=== PATIENT | female | born 1940 | race Caucasian/White ===

== ENCOUNTER 2020-09-11 13:21 | Inpatient (IN) | payer MEDICARE, BC ==
[~2020-09-11] VITALS: Ht 152.4 cm; Wt 103.4 kg
--- NOTE | 2020-09-11 16:30 | NUR ---
Admitted this 80 year old female from [facility] at 1610 with diagnosis of Right Knee Total Arthroplasty. Per report from Cory nurse at [facility], sx was 09/[address] Baker. No acute distress, no SOB noted, pt denies pain/discomfort at this time. Pt oriented to unit, floor, and assigned room. Pt A&Ox4, able to make needs known. MRSA swab to be collected and sent to lab. VS as follows: BP 144/80, Temperature 98.7 oral, Respirations 17, SpO2 94% on RA. HR of 104, per report from nurse at [facility] and paramedics, this is "normal" for pt. Pt educated geographic information systems engineer light usage, verbalized understanding. Call light and belongings within reach. Safety measures and fall precautions in place. Will continue to monitor.
[2020-09-11] MEDS ORDERED: LISI20TA30 PO (17:10)
[2020-09-11] MEDS ORDERED: ASPI-612 PO (17:10)
[2020-09-11] MEDS ORDERED: LEVO50TA8 PO (17:10)
[2020-09-11] MEDS ORDERED: CHOL10002 PO (17:10)
[2020-09-11] MEDS ORDERED: ALEN70TA80 PO (17:10)
[2020-09-11] MEDS ORDERED: VERA240C2 PO (17:10)
[2020-09-11] MEDS ORDERED: VERAPAMIL SR 120 MG TABLET.SA PO SCH (19:00)
[2020-09-11] MEDS ORDERED: LISINOPRIL 20 MG TABLET PO SCH (19:00)
[2020-09-11 19:02] VITALS: BP 144/50
[2020-09-11 20:22] VITALS: BP 102/46
--- NOTE | 2020-09-11 21:44 | NUR ---
Received pt resting in bed. AAO x4. On 2L O2 via NC, no acute distress noted. Denies pain/ discomfort. Due meds given as ordered. Admission assessment done. Safety measures maintained. Call light and personal items within reach. Will continue to monitor.
[2020-09-12 04:28] VITALS: BP 157/76
[2020-09-12] MEDS: OXYCODONE/APAP 5-325 MG TABLET PO PRN (05:38)
[2020-09-12 08:00] VITALS: BP 155/59
[2020-09-12] MEDS ORDERED: LEVOTHYROXINE SODIUM 50 MCG TABLET PO SCH (09:00)
[2020-09-12] MEDS: LISINOPRIL 20 MG TABLET PO SCH ×2 (09:21→20:16)
[2020-09-12] MEDS: CHOLECALCIFEROL 1,000 UNIT TABLET PO SCH (09:21)
[2020-09-12] MEDS: DOCUSATE SODIUM 100 MG CAPSULE PO SCH ×2 (09:21→20:15)
[2020-09-12] MEDS: ASPIRIN 325 MG TABLET PO SCH (09:21)
--- NOTE | 2020-09-12 10:46 | NUR ---
LEFT A MESSAGE FOR MD FOR VTE PROPHYLACTIC ORDER. WILL FOLLOW UP FOR MD ORDER.
[2020-09-12] MEDS ORDERED: IBANDRONATE 150 MG PO SCH (12:00)
[2020-09-12] MEDS: SENNOSIDES/DOCUSATE SODIUM TABLET PO SCH (12:04)
[2020-09-12] MEDS: ENOXAPARIN SODIUM 40 MG/0.4 ML DISP.SYRIN SQ SCH (12:05)
[2020-09-12] MEDS ORDERED: IBAN150T16 PO (12:32)
[2020-09-12] MEDS ORDERED: VERA300C6 PO (12:32)
[2020-09-12 16:20] VITALS: BP 124/55
[2020-09-12] MEDS ORDERED: VERAPAMIL SR 120 MG TABLET.SA PO SCH (18:00)
--- NOTE | 2020-09-12 18:15 | NUR ---
PATIENT PLEASANT AND COOPERATIVE. TOLERATED PHYSICAL THERAPY. VSS. MEDICATIONS GIVEN PRESCRIBED. NO S/S OF DISTRESS OR SOB NOTED. SAFETY PRECAUTIONS IN PLACE. CALL LIGHT WITHIN REACH. ALL NEEDS MET. WILL CONTINUE TO MONITOR.
--- NOTE | 2020-09-12 19:15 | NUR ---
Received pt in bed, awake, A&Ox4, able to make needs known, pleasant. Pt on oxygen at 2LPM via NC, showing no s/s of respiratory distress. No pain or discomfort reported. Safety measures in place, call light within reach. will continue to monitor.
[2020-09-12 20:00] VITALS: BP 153/63
[2020-09-13 04:00] VITALS: BP 163/70
[2020-09-13] MEDS ORDERED: ALENDRONATE SODIUM 70 MG TABLET PO SCH (06:00)
[2020-09-13] MEDS: LEVOTHYROXINE SODIUM 50 MCG TABLET PO SCH (06:18)
--- NOTE | 2020-09-13 06:20 | NUR ---
Pt in bed, awake and responsive, no s/s of respiratory distress, no pain reported. Medications given and tolerated well. Safety measures in place, call light within reach, all needs attended.
[2020-09-13 07:45] VITALS: BP 166/77
[2020-09-13 07:56] VITALS: BP 166/77
[2020-09-13] MEDS ORDERED: VERAPAMIL 300 MG PO SCH (10:08)
[2020-09-13] MEDS: ASPIRIN 325 MG TABLET PO SCH (10:17)
[2020-09-13] MEDS: DOCUSATE SODIUM 100 MG CAPSULE PO SCH ×2 (10:18→20:53)
[2020-09-13] MEDS: CHOLECALCIFEROL 1,000 UNIT TABLET PO SCH (10:18)
[2020-09-13] MEDS: LISINOPRIL 20 MG TABLET PO SCH ×2 (10:19→20:53)
[2020-09-13] MEDS: ENOXAPARIN SODIUM 40 MG/0.4 ML DISP.SYRIN SQ SCH (10:22)
[2020-09-13] MEDS: SENNOSIDES/DOCUSATE SODIUM TABLET PO SCH (10:23)
[2020-09-13] MEDS ORDERED: SORBITOL 70% SOLUTION 30 ML UDC PO ONE (11:00)
[2020-09-13] MEDS ORDERED: LACTULOSE 20 G/30 ML LIQUID UDC PO ONE (11:00)
[2020-09-13 12:00] VITALS: BP 152/65
[2020-09-13 16:00] VITALS: BP 141/62
--- NOTE | 2020-09-13 19:20 | NUR ---
Received pt laying in bed, awake, A&Ox4, able to make needs known. Pt on room air saturating at 93%, non labored breathing, no s/s of acute distress. No pain or discomfort noted. Safety measures in place, call light within reach, will continue to monitor.
[2020-09-13 20:00] VITALS: BP 135/71
--- NOTE | 2020-09-13 20:54 | NUR ---
Pt refused Colace saying " I had a good bowel movement today. I'm gonna wait till morning".
[2020-09-13] MEDS: OXYCODONE/APAP 5-325 MG TABLET PO PRN (21:51)
[2020-09-14 04:38] VITALS: BP 144/57
[2020-09-14] MEDS: LEVOTHYROXINE SODIUM 50 MCG TABLET PO SCH (06:04)
--- NOTE | 2020-09-14 06:18 | NUR ---
Pt slept through the night. On room air saturating at 94%, no s/s of respiratory distress. Medications tolerated well. R knee incision site clean and dry, no s/s of infection. Safety measures maintained, call light within reach, all needs attended.
[2020-09-14] MEDS: SENNOSIDES/DOCUSATE SODIUM TABLET PO SCH (09:00)
[2020-09-14] MEDS: ASPIRIN 325 MG TABLET PO SCH (09:18)
[2020-09-14] MEDS: LISINOPRIL 20 MG TABLET PO SCH ×2 (09:18→20:07)
[2020-09-14] MEDS: CHOLECALCIFEROL 1,000 UNIT TABLET PO SCH (09:18)
[2020-09-14] MEDS: DOCUSATE SODIUM 100 MG CAPSULE PO SCH ×2 (09:19→20:07)
[2020-09-14] MEDS: ENOXAPARIN SODIUM 40 MG/0.4 ML DISP.SYRIN SQ SCH (09:20)
[2020-09-14] MEDS: VERAPAMIL SR 120 MG TABLET.SA PO SCH (10:19)
--- NOTE | 2020-09-14 14:39 | NUR ---
INDIVIDUALIZED PLAN OF CARE
[2020-09-14 15:29] VITALS: BP 142/56
[2020-09-14] MEDS: CLOTRIMAZOLE 1% CREAM 30 GM TUBE TOP SCH (17:50)
--- NOTE | 2020-09-14 18:54 | NUR ---
Patient in bed, alert and oriented x 4, pleasant and cooperative upon assessment. Lotirimin order carried out for redness under the left breast. Right knee pratibha intact with no s/s of infection well approximated. All due meds given as ordered and tolerated well. VS WNL. All needs met promptly.
[2020-09-14 20:01] VITALS: BP 150/71
[2020-09-14] MEDS: OXYCODONE/APAP 5-325 MG TABLET PO PRN (20:08)
--- NOTE | 2020-09-14 21:47 | NUR ---
Received pt sleeping comfortably in bed. Aroused easily to verbal stimuli. Alert and oriented x4. No acute distress noted. C/o of right knee pain 01/25, PRN Percocet given. Other due meds also given. Turned and repositioned. Both heels offloaded. Safety measures maintained. Call light and personal items within reach. Will continue to monitor.
[2020-09-15 06:01] VITALS: BP 145/62
[2020-09-15] MEDS: LEVOTHYROXINE SODIUM 50 MCG TABLET PO SCH (06:06)
[2020-09-15 07:30] VITALS: BP 149/61
[2020-09-15] MEDS: ASPIRIN 325 MG TABLET PO SCH (08:19)
[2020-09-15] MEDS: DOCUSATE SODIUM 100 MG CAPSULE PO SCH ×2 (08:19→20:35)
[2020-09-15] MEDS: CHOLECALCIFEROL 1,000 UNIT TABLET PO SCH (08:19)
[2020-09-15] MEDS: LISINOPRIL 20 MG TABLET PO SCH ×2 (08:20→20:35)
[2020-09-15] MEDS: SENNOSIDES/DOCUSATE SODIUM TABLET PO SCH (08:20)
[2020-09-15] MEDS: VERAPAMIL SR 120 MG TABLET.SA PO SCH (08:21)
[2020-09-15] MEDS: ENOXAPARIN SODIUM 40 MG/0.4 ML DISP.SYRIN SQ SCH (08:28)
[2020-09-15] MEDS: OXYCODONE/APAP 5-325 MG TABLET PO PRN ×2 (08:29→18:11)
[2020-09-15] MEDS: CLOTRIMAZOLE 1% CREAM 30 GM TUBE TOP SCH ×2 (08:31→16:42)
[2020-09-15] MEDS ORDERED: SENNOSIDES 1 TABLET PO SCH (09:00)
[2020-09-15 15:32] VITALS: BP 134/62
--- NOTE | 2020-09-15 19:30 | NUR ---
Patient is alert and oriented x 4 on RA saturating @ 95 % . Pleasant and cooeprative upon assessment. Patient on CPM @ 1530 , tolerated well. Dressing on the right knee intact. All needs met promptly. Call light placed within easy reach. All due meds given as ordered.
[2020-09-15 20:19] VITALS: BP 141/42
[2020-09-16 06:02] VITALS: BP 146/58
--- NOTE | 2020-09-16 06:22 | NUR ---
Patient is alert and oriented x 4. SPO2 95% on Room Air. Cooperative upon assessment. Dressing on the right knee intact and dry. All needs met promptly. Call light and and personal belongings within reach. VS WNL.
[2020-09-16 07:30] VITALS: BP 132/75
[2020-09-16] MEDS: CHOLECALCIFEROL 1,000 UNIT TABLET PO SCH (08:00)
[2020-09-16] MEDS: LEVOTHYROXINE SODIUM 50 MCG TABLET PO SCH (08:00)
[2020-09-16] MEDS: ASPIRIN 325 MG TABLET PO SCH (08:00)
[2020-09-16] MEDS: SENNOSIDES/DOCUSATE SODIUM TABLET PO SCH (08:01)
[2020-09-16] MEDS: DOCUSATE SODIUM 100 MG CAPSULE PO SCH ×2 (08:01→21:24)
[2020-09-16] MEDS: OXYCODONE/APAP 5-325 MG TABLET PO PRN ×2 (08:02→17:25)
[2020-09-16] MEDS: ENOXAPARIN SODIUM 40 MG/0.4 ML DISP.SYRIN SQ SCH (08:04)
[2020-09-16] MEDS: LISINOPRIL 20 MG TABLET PO SCH ×2 (08:04→21:23)
[2020-09-16] MEDS: VERAPAMIL SR 120 MG TABLET.SA PO SCH (08:05)
[2020-09-16] MEDS: CLOTRIMAZOLE 1% CREAM 30 GM TUBE TOP SCH ×2 (08:13→17:32)
--- NOTE | 2020-09-16 09:30 | NUR ---
Received pt in bed, A&Ox4, able to verbalize needs. No acute distress, no SOB. Pt adherent with ordered medications, no a/r noted. Pt c/o R knee pain, PRN Percocet administered per order, effective. R knee dressing, clean, dry, intact. Safety measures, fall precautions in place. Call light and belongings within reach. Will continue to monitor.
--- NOTE | 2020-09-16 11:28 | NUR ---
WOUND CARE CONSULT: PT OFF UNIT AT THIS TIME. REVIEWED CHART, NURSING DOCUMENTATION AND PHOTO WHICH INDICATES CLOSED KNEE INCISION, PRESENT ON ADMISSION. PER NURSING STAFF, THERE IS BREASTFOLD REDNESS. CLOTRIMAZOLE IN USE. CONCUR WITH CURRENT TREATMENT PLAN. WILL SEE PRN. IN AGREEMENT WITH PLAN OF CARE.
--- NOTE | 2020-09-16 13:00 | NUR ---
pt placed on CPM, attempt 2 hrs at a time 2x a day as tolerated per orders. Currently pt 0 deg knee ext to 50 deg knee flexion with good michael, nursing informed.
[2020-09-16 16:00] VITALS: BP 129/50
--- NOTE | 2020-09-16 18:46 | NUR ---
EOSS: Pt in bed, awake, no acute distress. VSS. Able to verbalize needs throughout shift. Physical therapy placed pt on CPM, pt tolerated well. R knee dressing changed, surgical pratibha well approximated, no bleeding noted. Dressing and site remain clean, dry, intact. PRN Percocet administered per order for pain of 8/10, effective after 1 hour, pain subsided to 0/10. Safety measures, fall precautions remain in place. Call light and belongings within reach. Will endorse care to shift commander.
--- NOTE | 2020-09-16 19:45 | NUR ---
PATIENT ALERT ORIENTED, NO COMPLAIN OF PAIN, R KNEE DRESSING INTACT, AND DRY, ASSISTED WITH TURNING AND REPOSITIONING. PATIENT CALL LIGHT WITHIN REACH.
[2020-09-16 20:15] VITALS: BP 121/51
[2020-09-17 04:00] VITALS: BP 144/50
--- NOTE | 2020-09-17 06:02 | NUR ---
PATIENT ALERT ORIENTED, NO SOB NO CHEST PAIN. PATIENT HAS NO COMPLAIN OF PAIN AT THIS TIME. PATIENT R LEG ELEVETED WITH PILLOW, HEELS WERE ELEVATED TOO. PATIENT RENDERED GOOD JAE CARE DUE BLADDER INCONTINENCE. PATIENT SLEPT GOOD, CALL LIGHT WITHIN REACH.
[2020-09-17] MEDS: LEVOTHYROXINE SODIUM 50 MCG TABLET PO SCH (06:20)
[2020-09-17 08:18] VITALS: BP 154/58
[2020-09-17] MEDS: ASPIRIN 325 MG TABLET PO SCH (08:20)
[2020-09-17] MEDS: CHOLECALCIFEROL 1,000 UNIT TABLET PO SCH (08:21)
[2020-09-17] MEDS: SENNOSIDES/DOCUSATE SODIUM TABLET PO SCH (08:21)
[2020-09-17] MEDS: DOCUSATE SODIUM 100 MG CAPSULE PO SCH ×2 (08:21→20:50)
[2020-09-17] MEDS: OXYCODONE/APAP 5-325 MG TABLET PO PRN (08:23)
[2020-09-17] MEDS: ENOXAPARIN SODIUM 40 MG/0.4 ML DISP.SYRIN SQ SCH (08:29)
[2020-09-17] MEDS: Z GUARD REMEDY PASTE 57 GM TUBE TOP PRN ×2 (08:29→17:42)
[2020-09-17] MEDS: LISINOPRIL 20 MG TABLET PO SCH ×2 (08:30→20:50)
[2020-09-17] MEDS: CLOTRIMAZOLE 1% CREAM 30 GM TUBE TOP SCH ×2 (08:33→17:49)
[2020-09-17] MEDS: VERAPAMIL SR 120 MG TABLET.SA PO SCH (08:34)
--- NOTE | 2020-09-17 09:00 | NUR ---
Received pt in bed, awake, able to verbalize needs. No acute distress, no SOB. Pt on RA, O2 saturation 96%. VSS. Pt adherent with ordered medications, no a/r noted. PRN Percocet administered per order for pt c/o R knee pain, effective. R knee dressing, clean, dry, intact. Wound care rendered per order for L under breast redness. Safety measures, fall precautions in place. Call light and belongings within reach. Will continue to monitor.
--- NOTE | 2020-09-17 11:01 | NUR ---
WOUND CARE CONSULT: PT SEEN FOR LEFT BREASTFOLD RASH/REDNESS, PRESENT ON ADMISSION. PER PT REPORT, RASH IS IMPROVING WITH CLOTRIMAZOLE. RECOMMENDATIONS MADE FOR SKIN PROTECTION. DISCUSSED WITH NURSING STAFF. MD IN AGREEMENT WITH PLAN OF CARE.
[2020-09-17 15:59] VITALS: BP 120/41
--- NOTE | 2020-09-17 19:04 | NUR ---
EOSS: Pt in bed, awake, no acute distress, no SOB. Pt on RA, O2 saturation 94%. VSS. All needs met promptly throughout shift. Pt c/o R knee swelling, offered ice pack, pt agreed. R leg elevated, pt stated feeling more comfortable. Pt denies pain at this time. R knee dressing changed, minimal redness noted on skin where tape was applied, area cleaned, dried. Surgical pratibha well approximated, no redness or bleeding noted. Lotrimin and Z-Guard applied per order under left breast. Safety measures, fall precautions remain in place. Call light and belongings within reach. Will endorse care to security shift manager.
[2020-09-17 20:43] VITALS: BP 138/47
--- NOTE | 2020-09-18 02:17 | NUR ---
AAOx4 Patient S/P right total knee replacement on 09/09. Right knee dressing clean dry and intact. Patient continent of bowel and bladder. Voiding well in the bedpan. BM noted this shift. No complaints presented during shift. All due meds given. No acute distress noted.
[2020-09-18 04:35] VITALS: BP 142/48
[2020-09-18] MEDS: LEVOTHYROXINE SODIUM 50 MCG TABLET PO SCH (06:21)
--- NOTE | 2020-09-18 06:57 | NUR ---
End of shift notes: Slept well. Had an uneventful night. Needs attended. Voiding freely. No complaints presented during shift. VSS.
--- NOTE | 2020-09-18 07:30 | NUR ---
RECEIVED CHANGE OF SHIFT REPORT ON PT. PT IN BED RESTING, AWAKE ALERT AND ORIENTED X4. LEFT KNEE DRESSING CLEAN, DRY, IN TACT, PT HAS REDNESS UNDER THE LEFT BREAST, PT ON ROOM AIR. PT URINATES VIA DIAPER, NO IV ACCESS. BED IN LOW AND LOCKED POSITION, CALL LIGHT WITHIN REACH, SAFETY AND FALL PRECAUTIONS IN PLACE, BED ALARM ON. WILL CONTINUE TO MONITOR.
[2020-09-18 09:00] VITALS: BP 150/42
[2020-09-18] MEDS: ASPIRIN 325 MG TABLET PO SCH (09:08)
[2020-09-18] MEDS: DOCUSATE SODIUM 100 MG CAPSULE PO SCH ×2 (09:09→20:32)
[2020-09-18] MEDS: SENNOSIDES/DOCUSATE SODIUM TABLET PO SCH (09:09)
[2020-09-18] MEDS: CHOLECALCIFEROL 1,000 UNIT TABLET PO SCH (09:09)
[2020-09-18] MEDS: LISINOPRIL 20 MG TABLET PO SCH ×2 (09:09→20:33)
[2020-09-18] MEDS: ENOXAPARIN SODIUM 40 MG/0.4 ML DISP.SYRIN SQ SCH (09:10)
[2020-09-18] MEDS: VERAPAMIL SR 120 MG TABLET.SA PO SCH (09:17)
[2020-09-18] MEDS: CLOTRIMAZOLE 1% CREAM 30 GM TUBE TOP SCH ×2 (09:17→17:05)
[2020-09-18] MEDS: OXYCODONE/APAP 5-325 MG TABLET PO PRN ×2 (09:23→14:25)
[2020-09-18 09:41] LABS: BASOPHILS # (AUTO) 0.1 K/uL (0.0-8.0); BASOPHILS % (AUTO) 0.8 % (0.0-2.0); EOSINOPHILS # (AUTO) 0.3 K/uL (0.0-0.7); HEMOGLOBIN 10.3 g/dL (10.9-14.3); LYMPHOCYTES # (AUTO) 1.8 K/uL (20.0-40.0); LYMPHOCYTES % (AUTO) 18.9 % (20.5-51.5); MEAN CORPUSCULAR HEMOGLOBIN 35.3 uug (24.7-32.8); MEAN CORPUSCULAR HGB CONC 34 g/dL (32.3-35.6); MONOCYTES # (AUTO) 0.7 K/uL (2.0-10.0); MONOCYTES % (AUTO) 7.9 % (0.0-11.0); NEUTROPHILS # (AUTO) 6.5 K/uL (1.8-8.9); NEUTROPHILS % (AUTO) 69.4 % (38.5-71.5); PLATELET COUNT (AUTO) 419 K/uL (179-408); RED BLOOD CELL COUNT(AUTO) 2.91 MIL/uL (3.63-4.92); WHITE BLOOD COUNT (AUTO) 9.4 K/uL (3.8-11.8)
[2020-09-18 09:49] LABS: CREATININE 1.3 mg/dL (0.6-1.3); POTASSIUM 4.6 mmol/L (3.5-5.1)
[2020-09-18] MEDS: SULFAMETH/TRIMETH 800/160 MG TABLET PO SCH ×2 (11:06→20:32)
--- NOTE | 2020-09-18 15:09 | NUR ---
INTERDISCIPLINARY TEAM CONFERENCE
[2020-09-18 16:23] VITALS: BP 119/43
--- NOTE | 2020-09-18 18:41 | NUR ---
PT IN BED RESTING, AWAKE ALERT AND ORIENTED X4. COOPERATIVE AND PLEASANT. PT ON ROOM AIR, NO SIGNS OF DISTRESS NOTED, NO IV ACCESS. PT HAS REDNESS UNDER THE LEFT BREAST, MEDICATIONS GIVEN ORDERED, NO REPORTS OF PAIN NOTED. ALL NEEDS ADDRESSED DURING THIS SHIFT. PT INCONTINENT OF BOWEL AND BLADDER, PT HAS DIAPER ON. BED IN LOW AND LOCKED POSITION, CALL LIGHT WITHIN REACH, SAFETY AND FALL PRECAUTIONS IN PLACE, WILL ENDORSE TO ONCOMING NURSE.
--- NOTE | 2020-09-18 18:50 | NUR ---
PT IN BED RESTING, AWAKE ALERT AND ORIENTED X4. PT ON ROOM AIR, NO SIGNS OF DISTRESS NOTED, NO IV ACCESS, MEDICATIONS GIVEN ORDERED, NO REPORTS OF PAIN NOTED. ALL NEEDS ADDRESSED DURING THIS SHIFT. PT CONTINENT OF BOWEL AND BLADDER, BRP, BED SIDE COMMODE. BED IN LOW AND LOCKED POSITION, CALL LIGHT WITHIN REACH, SAFETY AND FALL PRECAUTIONS IN PLACE, WILL ENDORSE TO ONCOMING NURSE. Addendum: 09/18/20 at 1900 by MECHE GALLEGOS RN WRONG PT, PLEASE DISREGARD
[2020-09-18 20:05] VITALS: BP 131/66
--- NOTE | 2020-09-18 21:29 | NUR ---
Resting in bed.AAOx4 No acute distress noted. VSS. Fall precautions maintained. All due meds given without difficulty. Incontinent of bowel and bladder. Kept clean and dry.Needs attended. Siderails up for safety.
[2020-09-19 04:32] VITALS: BP 152/56
[2020-09-19] MEDS: LEVOTHYROXINE SODIUM 50 MCG TABLET PO SCH (06:16)
--- NOTE | 2020-09-19 06:18 | NUR ---
End of shift notes: slept well throughout the night. AAOx4. Patient incontinent of urine x2. Kept clean and dry. No BM noted this shift. Will monitor patient.
--- NOTE | 2020-09-19 07:30 | NUR ---
Received patient in bed alert and oriented. Denies pain or sob. No respiratory distress noted. Denies dysuria. R knee noted with dressing dry and intact. Kept comfortable. Safety precautions in place. Encouraged to use call light and placed it within reach. Will continue to monitor.
[2020-09-19 07:50] VITALS: BP 136/46
[2020-09-19] MEDS: LISINOPRIL 20 MG TABLET PO SCH ×2 (08:10→20:02)
[2020-09-19] MEDS: ASPIRIN 325 MG TABLET PO SCH (08:10)
[2020-09-19] MEDS: CHOLECALCIFEROL 1,000 UNIT TABLET PO SCH (08:10)
[2020-09-19] MEDS: DOCUSATE SODIUM 100 MG CAPSULE PO SCH ×2 (08:11→20:02)
[2020-09-19] MEDS: SENNOSIDES/DOCUSATE SODIUM TABLET PO SCH (08:11)
[2020-09-19] MEDS: SULFAMETH/TRIMETH 800/160 MG TABLET PO SCH ×2 (08:11→20:02)
[2020-09-19] MEDS: ENOXAPARIN SODIUM 40 MG/0.4 ML DISP.SYRIN SQ SCH (08:13)
[2020-09-19] MEDS: VERAPAMIL SR 120 MG TABLET.SA PO SCH (08:14)
[2020-09-19] MEDS: CLOTRIMAZOLE 1% CREAM 30 GM TUBE TOP SCH (09:00)
[2020-09-19] MEDS: NYSTATIN POWDER 15 GM BOTTLE TOP SCH ×2 (11:20→20:03)
--- NOTE | 2020-09-19 13:25 | NUR ---
Patient in bed, in pleasant mood. Denies pain. No respiratory distress. Safety precautions in place. Call light placed within reach. Will continue to monitor.
[2020-09-19] MEDS: OXYCODONE/APAP 5-325 MG TABLET PO PRN (15:19)
[2020-09-19 15:34] VITALS: BP 141/57
--- NOTE | 2020-09-19 19:05 | NUR ---
Patient resting. Alert and oriented. Denies pain or sob. Due meds given and tolerated. On atb Bactrim for uti. No adverse reactions noted. No nausea or vomiting. Cooperative with plan of care. Safety measures in place. Call light within reach. Will continue to monitor.
[2020-09-19 20:34] VITALS: BP 121/51
--- NOTE | 2020-09-19 20:52 | NUR ---
Received sleeping in bed, aroused easily to verbal stimuli. Alert and oriented x4. No acute distress noted. Denies pain/ discomfort. Due meds given as ordered. Safety measures maintained. Call light and personal items within reach. Will continue to monitor.
[2020-09-20 04:00] VITALS: BP 122/53
[2020-09-20 05:17] LABS: *BILIRUBIN,URIN NEGATIVE (NEGATIVE); *BLOOD, URINE NEGATIVE (NEGATIVE); *CLARITY,URINE CLOUDY (CLEAR); *COLOR,URINE YELLOW (YELLOW); *KETONES,URINE NEGATIVE (NEGATIVE); *UROBILINOGEN,URINE 0.2 E.U./dl (NORMAL); LEUKOCYTE ESTERASE ,URINE 3+ (NEGATIVE); NITRITE, URINE POSITIVE (NEGATIVE); PH,URINE 5.5 (5.0-8.0); UGLUCOSE NEGATIVE (NEGATIVE)
[2020-09-20 05:24] LABS: *CREATININE,URINE 146.9 mg/dL (30-125); *URINE TOTAL PROTEIN RANDOM 21.4 mg/dL (<150/24HR)
[2020-09-20 05:31] LABS: WBC,URINE 80-100 /HPF (0-3)
[2020-09-20 05:32] LABS: BACTERIA,URINE MANY /HPF (NONE SEEN); SQUAMOUS EPITHELIAL CELL,UR MANY /HPF (NONE SEEN)
[2020-09-20] MEDS: LEVOTHYROXINE SODIUM 50 MCG TABLET PO SCH (06:07)
[2020-09-20 07:15] LABS: BASOPHILS # (AUTO) 0.1 K/uL (0.0-8.0); BASOPHILS % (AUTO) 0.6 % (0.0-2.0); EOSINOPHILS # (AUTO) 0.2 K/uL (0.0-0.7); EOSINOPHILS % (AUTO) 1.9 % (0.0-7.0); HEMATOCRIT 28.8 % (31.2-41.9); HEMOGLOBIN 9.5 g/dL (10.9-14.3); LYMPHOCYTES # (AUTO) 1.3 K/uL (20.0-40.0); LYMPHOCYTES % (AUTO) 11.9 % (20.5-51.5); MEAN CORPUSCULAR HEMOGLOBIN 35.2 uug (24.7-32.8); MEAN CORPUSCULAR HGB CONC 33 g/dL (32.3-35.6); MEAN CORPUSCULAR VOLUME 106.3 fL (75.5-95.3); NEUTROPHILS # (AUTO) 8.5 K/uL (1.8-8.9); NEUTROPHILS % (AUTO) 76.6 % (38.5-71.5); PLATELET COUNT (AUTO) 452 K/uL (179-408); RED BLOOD CELL COUNT(AUTO) 2.71 MIL/uL (3.63-4.92); WHITE BLOOD COUNT (AUTO) 11.1 K/uL (3.8-11.8)
[2020-09-20 07:35] LABS: ALANINE AMINOTRANSFERASE 24 U/L (14-59); ALKALINE PHOSPHATASE 78 U/L (50-136); ASPARTATE AMINOTRANSFERASE 16 U/L (15-37); BILIRUBIN,TOTAL 0.4 mg/dL (0.2-1.0); CARBON DIOXIDE 27 mmol/L (21-32); CHLORIDE 102 mmol/L (98-107); CREATINE KINASE, TOTAL 11 U/L (26-192); CREATININE 1.5 mg/dL (0.6-1.3); GLUCOSE 94 mg/dL (74-106); MAGNESIUM 1.9 mg/dL (1.8-2.4); POTASSIUM 4.9 mmol/L (3.5-5.1); TOTAL PROTEIN, SERUM 6.2 g/dL (6.4-8.2); UREA NITROGEN, BLOOD 19 mg/dL (7-18)
[2020-09-20 08:00] VITALS: BP 136/55
[2020-09-20] MEDS: SENNOSIDES/DOCUSATE SODIUM TABLET PO SCH (08:58)
[2020-09-20] MEDS: OXYCODONE/APAP 5-325 MG TABLET PO PRN ×2 (08:59→20:43)
[2020-09-20] MEDS: SULFAMETH/TRIMETH 800/160 MG TABLET PO SCH ×2 (08:59→20:43)
[2020-09-20] MEDS: DOCUSATE SODIUM 100 MG CAPSULE PO SCH ×2 (09:00→20:43)
[2020-09-20] MEDS: VERAPAMIL SR 120 MG TABLET.SA PO SCH (09:00)
[2020-09-20] MEDS: LISINOPRIL 20 MG TABLET PO SCH ×2 (09:00→20:44)
[2020-09-20] MEDS: ASPIRIN 325 MG TABLET PO SCH (09:00)
[2020-09-20] MEDS: CHOLECALCIFEROL 1,000 UNIT TABLET PO SCH (09:01)
[2020-09-20] MEDS: ENOXAPARIN SODIUM 40 MG/0.4 ML DISP.SYRIN SQ SCH (09:01)
[2020-09-20] MEDS: NYSTATIN POWDER 15 GM BOTTLE TOP SCH ×2 (09:02→20:44)
[2020-09-20 16:00] VITALS: BP 113/60
[2020-09-20 20:00] VITALS: BP 142/44
[2020-09-21 04:00] VITALS: BP 130/59
--- NOTE | 2020-09-21 05:04 | NUR ---
Received pt resting comfortably in bed. Alert and oriented x4. No acute distress noted. C/o of right knee pain 5/10, PRN Percocet given. All due meds administered and tolerated well. Turned and repositioned. Both heels offloaded. Safety measures maintained. Call light and personal items within reach. Will continue to monitor.
[2020-09-21] MEDS: LEVOTHYROXINE SODIUM 50 MCG TABLET PO SCH (06:26)
[2020-09-21 08:22] VITALS: BP 119/53
[2020-09-21] MEDS: DOCUSATE SODIUM 100 MG CAPSULE PO SCH (09:07)
[2020-09-21] MEDS: ASPIRIN 325 MG TABLET PO SCH (09:07)
[2020-09-21] MEDS: LISINOPRIL 20 MG TABLET PO SCH (09:08)
[2020-09-21] MEDS: SULFAMETH/TRIMETH 800/160 MG TABLET PO SCH (09:08)
[2020-09-21] MEDS: SENNOSIDES/DOCUSATE SODIUM TABLET PO SCH (09:08)
[2020-09-21] MEDS: CHOLECALCIFEROL 1,000 UNIT TABLET PO SCH (09:08)
[2020-09-21] MEDS: OXYCODONE/APAP 5-325 MG TABLET PO PRN (09:08)
[2020-09-21 09:10] VITALS: BP 119/53
[2020-09-21] MEDS: VERAPAMIL SR 120 MG TABLET.SA PO SCH (09:10)
[2020-09-21] MEDS: ENOXAPARIN SODIUM 40 MG/0.4 ML DISP.SYRIN SQ SCH (09:21)
[2020-09-21] MEDS: NYSTATIN POWDER 15 GM BOTTLE TOP SCH (09:21)
[2020-09-24 16:42] LABS: ALBUMIN 2.3; M-SPIKE 0.4
[2020-09-24 16:45] LABS: ALPHA-1-GLOBULIN 0.4
[2020-09-24 16:46] LABS: ALPHA-2-GLOBULIN 0.8
[2020-09-24 16:47] LABS: GAMMA GLOBULIN 0.9
[2020-09-24 16:48] LABS: GLOBULIN, TOTAL 3.1
[2020-09-24 16:57] LABS: A/G RATIO 0.7
[2020-10-11] MEDS ORDERED: ALENDRONATE SODIUM 70 MG TABLET PO SCH (09:00)
== END 2020-09-21 14:15 | disposition home health service (06) | DRG 560 ==
PROVIDERS: ADMIT Physical Medicine & Rehabilitation Pain Medicine; ATTEND Physical Medicine & Rehabilitation Pain Medicine
DX: Z47.1 Aftercare following joint replacement surgery (principal); D68.59 Other primary thrombophilia; E46 Unspecified protein-calorie malnutrition; N17.9 Acute kidney failure, unspecified; N39.0 Urinary tract infection, site not specified; Z96.653 Presence of artificial knee joint, bilateral; E03.9 Hypothyroidism, unspecified; I10 Essential (primary) hypertension; K59.00 Constipation, unspecified; M17.11 Unilateral primary osteoarthritis, right knee; Z90.710 Acquired absence of both cervix and uterus; R53.81 Other malaise; E66.01 Morbid (severe) obesity due to excess calories; R79.89 Other specified abnormal findings of blood chemistry; Z88.0 Allergy status to penicillin
CPT/HCPCS: 36415; 83735; 83970; 84100; 84155; 84156; 84165; 84300; 85025; 87086; A4663; J1650